=== PATIENT | female | born 1940 | race Caucasian/White ===

== ENCOUNTER 2019-03-30 08:45 | Inpatient (IN) ==
[2019-03-30] MEDS ORDERED: MORPHINE 4 MG/1 ML VIAL IV PRN (13:41)
[2019-03-30] MEDS ORDERED: ONDANSETRON 4 MG/2 ML VIAL IV PRN (13:41)
[2019-03-30] MEDS ORDERED: SODIUM CHLORIDE 0.9% 1,000 ML IV SCH (14:00)
[2019-03-30 14:23] LABS: Basophils % 0.3 % (0.0-0.8); Eosinophils # 0.3 10*3/uL (0.0-0.87); Eosinophils % 3.9 % (0.00-10.9); Hematocrit 35.7 VOL% (35.7-47.0); Hemoglobin 10.7 GM/DL (12.0-16.0); Immature Granulocytes % 0.9 %; Immature Granulocytes Absolute 0.08 #; Lymphocytes # 1.1 10*3/uL (1.4-4.0); Lymphocytes % 12.1 % (21.3-54.2); Mean Corpuscular Volume 88.8 FL (87-102); Mean Platelet Volume 11.3 FL (9.6-12.0); Monocytes % 9.1 % (1.7-12.7); Neutrophils % 73.7 % (38.7-73.9); Platelet Count 203 T/CUMM (130-400); Red Blood Count 4.02 MC/CUMM (3.8-5.5); Red Cell Distribution Width 15.3 % (9.3-17.3); White Blood Count 8.7 T/CUMM (4-12)
[2019-03-30] MEDS: PANTOPRAZOLE 40 MG TABLET PO SCH (14:36)
[2019-03-30] MEDS: cefTRIAXone 1,000 MG in SYRINGE 1 EACH IV SCH (14:36)
[2019-03-30] MEDS: AZITHROMYCIN INJ 500 MG in SODIUM CHLORIDE 0.9% 250 ML IV SCH (14:37)
[2019-03-30 14:55] LABS: Albumin 2.2 G/DL (3.4-5.0); Bilirubin,Total 0.4 MG/DL (0.2-1.0); Calcium 8.4 MG/DL (8.5-10.1); Osmolality,Calculated 297.3 MOS/KG (273-304); Thyroid Stimulating Hormone 3.33 uIU/ml (0.358-3.74); Total Protein 6.5 G/DL (6.4-8.3)
[2019-03-30 15:29] LABS: Apearance,Urine CLEAR (Clear); Bacteria,Urine Occasional /HPF (Few); Bilirubin,Urine Negative (Negative); Blood, Urine Small mg/dL (Negative); Glucose,Urine (UA) Negative (Negative); Hyaline Casts,Urine 17 /LPF (0-3); Ketones,Urine Negative (Negative); Mucus,Urine Occasional /LPF (Occasional); Nitrite,Urine Negative (Negative); Protein,Urine Negative; RBC,Urine 28 /HPF (0-4); Squamous Epithelial Cell,Urine Occasional /HPF (0-10); Urine Color Yellow (Yellow); Urine Specific Gravity 1.024 (1.001-1.035); Urine Urobilinogen < 2.0 EU/DL (0.2-1.0); WBC,Urine 18 /HPF (0-6)
[2019-03-30] MEDS: ALBUTEROL/IPRATROPIUM 3 ML NEB RESP TX SCH (19:27)
[2019-03-30 21:47] LABS: ABG Base Excess -3.8 MMOL/L (-2.5-2.5); ABG HCO3 21.3 MMOL/L (20-26); ABG Oxygen Saturation 97.9 % (95-100); ABG PCO2 27.3 MM HG (35-48); ABG PH 7.453 (7.35-7.45); ABG PO2 91.4 MM HG (80-95); ABG TCO2 17.3 MMOL/L (23-27); Allen Test Positive
[2019-03-30] MEDS: DEXTROSE 5% LACTATED RINGERS 1,000 ML IV SCH (21:50)
[2019-03-30] MEDS: MEMANTINE 10 MG TABLET PO SCH (21:57)
[2019-03-30] MEDS: RANITIDINE 150 MG TABLET PO SCH (21:57)
[2019-03-30] MEDS: NYSTATIN 500,000 UNIT/5 ML UDCUP PO SCH (21:57)
[2019-03-30] MEDS: ACETAMINOPHEN 325 MG TABLET PO PRN (21:57)
[2019-03-30] MEDS: traZODone 50 MG TABLET PO SCH (21:57)
[2019-03-30] MEDS: SIMVASTATIN 10 MG TABLET PO SCH (21:57)
[2019-03-30] MEDS: DONEPEZIL 5 MG TABLET PO SCH (21:57)
[2019-03-30] MEDS: METHENAMINE HIPPURATE 1 GM TABLET PO SCH (21:57)
[2019-03-31] MEDS: ALBUTEROL/IPRATROPIUM 3 ML NEB RESP TX SCH ×4 (00:59→19:08)
[2019-03-31 05:47] LABS: Basophils % 0.3 % (0.0-0.8); Eosinophils # 0.3 10*3/uL (0.0-0.87); Eosinophils % 4.3 % (0.00-10.9); Hematocrit 33.8 VOL% (35.7-47.0); Hemoglobin 10.2 GM/DL (12.0-16.0); Immature Granulocytes % 1.1 %; Immature Granulocytes Absolute 0.08 #; Lymphocytes # 1.3 10*3/uL (1.4-4.0); Lymphocytes % 16.9 % (21.3-54.2); Mean Corpuscular HGB Conc 30.2 GM/DL (32-36); Mean Corpuscular Volume 87.6 FL (87-102); Mean Platelet Volume 11.2 FL (9.6-12.0); Monocytes % 8.6 % (1.7-12.7); Neutrophils % 68.8 % (38.7-73.9); Platelet Count 165 T/CUMM (130-400); Red Blood Count 3.86 MC/CUMM (3.8-5.5); Red Cell Distribution Width 15.1 % (9.3-17.3); White Blood Count 7.5 T/CUMM (4-12)
[2019-03-31 06:11] LABS: Risk Ratio 3.03; VLDL CHOLESTEROL 13.4 MG/DL
[2019-03-31 06:21] LABS: Osmolality,Calculated 292.7 MOS/KG (273-304)
[2019-03-31] MEDS ORDERED: VANCOMYCIN INJ 1,000 MG in SODIUM CHLORIDE 0.9% 250 ML IV ONE (06:30)
[2019-03-31] MEDS ORDERED: ceFAZolin 1,000 MG in SYRINGE 1 EACH IV ONE (06:30)
[2019-03-31] MEDS: LEVOTHYROXINE 50 MCG TABLET PO SCH (07:20)
[2019-03-31] MEDS: DEXTROSE 5% LACTATED RINGERS 1,000 ML IV SCH (07:25)
[2019-03-31] MEDS ORDERED: BUPIVACAINE MPF 0.5% /EPI 30 ML VIAL ONE (08:59)
[2019-03-31] MEDS ORDERED: DEXMEDETOMIDINE 200 MCG/2 ML VIAL ONE (09:00)
[2019-03-31] MEDS ORDERED: DEXAMETHASONE 4 MG/1 ML VIAL ONE (09:00)
[2019-03-31] MEDS ORDERED: LIDOCAINE 1% 5 ML VIAL ONE (09:00)
[2019-03-31] MEDS ORDERED: MIDAZOLAM 2 MG/2 ML VIAL ONE (09:00)
[2019-03-31] MEDS ORDERED: TRANEXAMIC ACID 1,000 MG/10 ML VIAL ONE (09:11)
[2019-03-31] MEDS ORDERED: BUPIVACAINE SPINAL 0.75% 2 ML AMP SPINAL ONE (09:11)
[2019-03-31] MEDS ORDERED: BACITRACIN OINT 0.9 GM PACK TOP ONE (09:18)
[2019-03-31] MEDS ORDERED: ALBUMIN 25% 25 GM/100 ML VIAL IV ONE (11:15)
[2019-03-31] MEDS ORDERED: SUGAMMADEX 200 MG/2 ML VIAL IV ONE (11:32)
[2019-03-31] MEDS ORDERED: MAGNESIUM HYDROXIDE SUSP 30 ML UDCUP PO PRN (12:08)
[2019-03-31] MEDS: PANTOPRAZOLE 40 MG TABLET PO SCH ×2 (12:09→14:22)
[2019-03-31] MEDS ORDERED: FUROSEMIDE 20 MG/2 ML VIAL ONE (12:34)
[2019-03-31] MEDS ORDERED: SEVOFLURANE 1 UNIT/15 MINUTE INH ONE (12:55)
[2019-03-31] MEDS ORDERED: ETOMIDATE 40 MG/20 ML VIAL IV ONE (12:56)
[2019-03-31] MEDS ORDERED: fentaNYL 100 MCG/2 ML VIAL ONE (12:56)
[2019-03-31] MEDS ORDERED: ROCURONIUM 100 MG/10 ML VIAL IV ONE (12:56)
[2019-03-31] MEDS: NYSTATIN 500,000 UNIT/5 ML UDCUP PO SCH ×4 (13:40→21:12)
[2019-03-31] MEDS: DONEPEZIL 10 MG TABLET PO SCH (14:22)
[2019-03-31] MEDS: MEMANTINE 10 MG TABLET PO SCH ×2 (14:22→21:12)
[2019-03-31] MEDS: ESCITALOPRAM 10 MG TABLET PO SCH (14:22)
[2019-03-31] MEDS: METHENAMINE HIPPURATE 1 GM TABLET PO SCH ×2 (14:22→21:11)
[2019-03-31] MEDS: LORATADINE 10 MG TABLET PO SCH (14:22)
[2019-03-31] MEDS: RANITIDINE 150 MG TABLET PO SCH ×2 (14:22→21:12)
[2019-03-31] MEDS: MEGESTROL ES 125 MG/ML 30 ML/BOTTLE PO SCH (14:22)
[2019-03-31] MEDS: KETOROLAC 15 MG/1 ML VIAL IV SCH ×2 (14:53→17:56)
[2019-03-31] MEDS: AZITHROMYCIN INJ 500 MG in SODIUM CHLORIDE 0.9% 250 ML IV SCH (14:54)
[2019-03-31] MEDS: cefTRIAXone 1,000 MG in SYRINGE 1 EACH IV SCH (14:54)
[2019-03-31] MEDS: traZODone 50 MG TABLET PO SCH (21:10)
[2019-03-31] MEDS: SIMVASTATIN 10 MG TABLET PO SCH (21:12)
[2019-03-31] MEDS: DONEPEZIL 5 MG TABLET PO SCH (21:12)
[2019-03-31] MEDS: DOCUSATE SODIUM 100 MG CAPSULE PO SCH (21:12)
[2019-04-01] MEDS: ALBUTEROL/IPRATROPIUM 3 ML NEB RESP TX SCH ×4 (00:02→20:12)
[2019-04-01] MEDS: KETOROLAC 15 MG/1 ML VIAL IV SCH ×2 (01:07→06:17)
[2019-04-01 05:26] LABS: Basophils % 0.2 % (0.0-0.8); Eosinophils # 0.1 10*3/uL (0.0-0.87); Eosinophils % 0.7 % (0.00-10.9); Hemoglobin 10.4 GM/DL (12.0-16.0); Immature Granulocytes % 1.1 %; Lymphocytes # 1.4 10*3/uL (1.4-4.0); Lymphocytes % 14.7 % (21.3-54.2); Mean Corpuscular HGB Conc 29.7 GM/DL (32-36); Mean Corpuscular Volume 89.1 FL (87-102); Mean Platelet Volume 11.7 FL (9.6-12.0); Monocytes % 10.3 % (1.7-12.7); Platelet Count 176 T/CUMM (130-400); Red Blood Count 3.93 MC/CUMM (3.8-5.5); Red Cell Distribution Width 14.8 % (9.3-17.3); White Blood Count 9.2 T/CUMM (4-12)
[2019-04-01 06:04] LABS: Calcium 8.4 MG/DL (8.5-10.1); Osmolality,Calculated 279.5 MOS/KG (273-304)
[2019-04-01] MEDS: FONDAPARINUX 2.5 MG/0.5 ML SYRINGE SUBCUT SCH (06:16)
[2019-04-01] MEDS: LEVOTHYROXINE 50 MCG TABLET PO SCH (06:16)
[2019-04-01] MEDS: MEMANTINE 10 MG TABLET PO SCH ×2 (08:05→21:52)
[2019-04-01] MEDS: DONEPEZIL 10 MG TABLET PO SCH (08:05)
[2019-04-01] MEDS: PANTOPRAZOLE 40 MG TABLET PO SCH (08:05)
[2019-04-01] MEDS: LORATADINE 10 MG TABLET PO SCH (08:05)
[2019-04-01] MEDS: ESCITALOPRAM 10 MG TABLET PO SCH (08:05)
[2019-04-01] MEDS: DOCUSATE SODIUM 100 MG CAPSULE PO SCH ×2 (08:05→21:52)
[2019-04-01] MEDS: NYSTATIN 500,000 UNIT/5 ML UDCUP PO SCH ×4 (08:05→21:53)
[2019-04-01] MEDS: RANITIDINE 150 MG TABLET PO SCH ×2 (08:05→21:53)
[2019-04-01] MEDS: METHENAMINE HIPPURATE 1 GM TABLET PO SCH ×2 (08:09→21:53)
[2019-04-01] MEDS: MEGESTROL ES 125 MG/ML 30 ML/BOTTLE PO SCH (08:20)
[2019-04-01] MEDS: cefTRIAXone 1,000 MG in SYRINGE 1 EACH IV SCH (16:31)
[2019-04-01] MEDS: AZITHROMYCIN INJ 500 MG in SODIUM CHLORIDE 0.9% 250 ML IV SCH (16:31)
[2019-04-01] MEDS: traZODone 50 MG TABLET PO SCH (21:52)
[2019-04-01] MEDS: DONEPEZIL 5 MG TABLET PO SCH (21:52)
[2019-04-01] MEDS: SIMVASTATIN 10 MG TABLET PO SCH (21:53)
[2019-04-02] MEDS: cefTRIAXone 1,000 MG in SYRINGE 1 EACH IV SCH (00:06)
[2019-04-02] MEDS: AZITHROMYCIN INJ 500 MG in SODIUM CHLORIDE 0.9% 250 ML IV SCH (00:09)
[2019-04-02] MEDS: ALBUTEROL/IPRATROPIUM 3 ML NEB RESP TX SCH ×4 (00:48→18:00)
[2019-04-02 05:53] LABS: Basophils % 0.3 % (0.0-0.8); Eosinophils # 0.4 10*3/uL (0.0-0.87); Eosinophils % 4.2 % (0.00-10.9); Hemoglobin 9.2 GM/DL (12.0-16.0); Immature Granulocytes % 3.4 %; Immature Granulocytes Absolute 0.29 #; Lymphocytes # 1.3 10*3/uL (1.4-4.0); Lymphocytes % 15.2 % (21.3-54.2); Mean Corpuscular HGB Conc 30.7 GM/DL (32-36); Mean Corpuscular Volume 85.2 FL (87-102); Mean Platelet Volume 11.4 FL (9.6-12.0); Neutrophils % 67.9 % (38.7-73.9); Platelet Count 199 T/CUMM (130-400); Red Blood Count 3.52 MC/CUMM (3.8-5.5); Red Cell Distribution Width 15.3 % (9.3-17.3); White Blood Count 8.6 T/CUMM (4-12)
[2019-04-02] MEDS: LEVOTHYROXINE 50 MCG TABLET PO SCH (06:23)
[2019-04-02] MEDS: FONDAPARINUX 2.5 MG/0.5 ML SYRINGE SUBCUT SCH (06:25)
[2019-04-02] MEDS: METHENAMINE HIPPURATE 1 GM TABLET PO SCH ×2 (08:54→21:58)
[2019-04-02] MEDS: ESCITALOPRAM 10 MG TABLET PO SCH (08:54)
[2019-04-02] MEDS: RANITIDINE 150 MG TABLET PO SCH ×2 (08:54→21:58)
[2019-04-02] MEDS: PANTOPRAZOLE 40 MG TABLET PO SCH (08:55)
[2019-04-02] MEDS: DONEPEZIL 10 MG TABLET PO SCH (08:55)
[2019-04-02] MEDS: DOCUSATE SODIUM 100 MG CAPSULE PO SCH ×2 (08:55→21:59)
[2019-04-02] MEDS: LORATADINE 10 MG TABLET PO SCH (08:55)
[2019-04-02] MEDS: NYSTATIN 500,000 UNIT/5 ML UDCUP PO SCH ×4 (08:55→21:58)
[2019-04-02] MEDS: MEMANTINE 10 MG TABLET PO SCH ×2 (10:05→21:58)
[2019-04-02] MEDS: MEGESTROL ES 125 MG/ML 30 ML/BOTTLE PO SCH (11:02)
[2019-04-02] MEDS: ACETAMINOPHEN 325 MG TABLET PO PRN (18:37)
[2019-04-02] MEDS: SIMVASTATIN 10 MG TABLET PO SCH (21:58)
[2019-04-02] MEDS: traZODone 50 MG TABLET PO SCH (21:59)
[2019-04-02] MEDS: DONEPEZIL 5 MG TABLET PO SCH (21:59)
[2019-04-03] MEDS: ALBUTEROL/IPRATROPIUM 3 ML NEB RESP TX SCH ×3 (00:27→13:20)
[2019-04-03] MEDS: cefTRIAXone 1,000 MG in SYRINGE 1 EACH IV SCH (00:38)
[2019-04-03] MEDS: AZITHROMYCIN INJ 500 MG in SODIUM CHLORIDE 0.9% 250 ML IV SCH (00:43)
[2019-04-03 06:09] LABS: Basophils % 0.5 % (0.0-0.8); Eosinophils # 0.4 10*3/uL (0.0-0.87); Eosinophils % 4.3 % (0.00-10.9); Hematocrit 32.4 VOL% (35.7-47.0); Hemoglobin 9.8 GM/DL (12.0-16.0); Immature Granulocytes % 3.4 %; Lymphocytes # 1.1 10*3/uL (1.4-4.0); Lymphocytes % 12.8 % (21.3-54.2); Mean Corpuscular HGB Conc 30.2 GM/DL (32-36); Mean Corpuscular Volume 86.6 FL (87-102); Mean Platelet Volume 11.5 FL (9.6-12.0); Monocytes % 8.3 % (1.7-12.7); Neutrophils % 70.7 % (38.7-73.9); Platelet Count 194 T/CUMM (130-400); Red Blood Count 3.74 MC/CUMM (3.8-5.5); Red Cell Distribution Width 15.3 % (9.3-17.3); White Blood Count 8.8 T/CUMM (4-12)
[2019-04-03] MEDS: FONDAPARINUX 2.5 MG/0.5 ML SYRINGE SUBCUT SCH (06:23)
[2019-04-03] MEDS: LEVOTHYROXINE 50 MCG TABLET PO SCH (06:24)
[2019-04-03] MEDS: MEGESTROL ES 125 MG/ML 30 ML/BOTTLE PO SCH (11:20)
[2019-04-03] MEDS: DONEPEZIL 10 MG TABLET PO SCH (11:21)
[2019-04-03] MEDS: PANTOPRAZOLE 40 MG TABLET PO SCH (11:21)
[2019-04-03] MEDS: DOCUSATE SODIUM 100 MG CAPSULE PO SCH ×2 (11:21→12:12)
[2019-04-03] MEDS: NYSTATIN 500,000 UNIT/5 ML UDCUP PO SCH ×2 (11:21→14:03)
[2019-04-03] MEDS: ESCITALOPRAM 10 MG TABLET PO SCH (11:21)
[2019-04-03] MEDS: RANITIDINE 150 MG TABLET PO SCH (11:21)
[2019-04-03] MEDS: MEMANTINE 10 MG TABLET PO SCH (11:21)
[2019-04-03] MEDS: LORATADINE 10 MG TABLET PO SCH (11:21)
[2019-04-03] MEDS: METHENAMINE HIPPURATE 1 GM TABLET PO SCH (11:22)
[2019-04-03 12:15] VITALS: BP 144/63
[2019-04-06] MEDS ORDERED: NF- (Alendronate [Fosamax] 70 MG) PO SCH (09:00)
== END 2019-04-03 14:00 | DRG 469 ==
LOC: N.3E 12:41 → SUPCPDRO 12:41 → SUATTDRO 12:41 → N.ICU 03-31 13:48 → N.3E 04-01 13:17
PROVIDERS: ADMIT Internal Medicine; ATTEND Family Medicine